=== PATIENT | male | born 1940 | race Caucasian/White ===

== ENCOUNTER 2023-03-31 23:20 | Inpatient (IN) | payer OTHER, MEDICARE ==
[2023-03-31] MEDS ORDERED: Calcium Carbonate 500 MG ChewTAB PO PRN (23:43)
[2023-03-31] MEDS ORDERED: Dextrose 50% Abboject 50 ML SYRINGE SLOW IVP PRN (23:48)
[2023-03-31] MEDS ORDERED: HumaLOG 300 UNITS/3 ML VIAL SC PRN (23:48)
[2023-03-31] MEDS ORDERED: Glucagon 1 MG/ML KIT IM PRN (23:48)
[2023-03-31] MEDS ORDERED: Dextrose 5% in Water 1,000 ML IV PRN (23:48)
[2023-03-31] MEDS ORDERED: Electrolyte Replacement Protocol 1 EACH FS SCH (23:49)
[2023-03-31 23:57] VITALS: BMI 37.5
[2023-03-31] MEDS ORDERED: Piperacillin/Tazobactam 3.375 GM in Sodium Chloride 0.9% 100 ML IVPB SCH (23:59)
[2023-03-31] MEDS ORDERED: Lactated Ringer's 500 ML IV SCH (23:59)
[2023-04-01 00:38] LABS: #Eosinphils 0.1 thou/uL (0.0-0.7); %Eosinophils 0.7 % (0.0-10.0); Mean Corpuscular Volume 102.4 fl (78.0-98.0); RBC Distribution Width 13.6 % (11.5-14.5)
[2023-04-01 00:39] LABS: #Monocytes 1.6 thou/uL (0.11-0.59); #Neutrophils 11.2 thou/uL (1.40-6.50); %Basophils 0.2 % (0.0-1.0); %Lymphocytes 3.4 % (21.0-51.0); %Monocytes 11.8 % (0.0-10.0); %Neutrophils 83.5 % (42.0-75.0); Hematocrit 30.3 % (42.0-52.0); Hemoglobin 9.1 g/dL (14.0-18.0); Mean Corpuscular Hemoglobin 30.7 pg (27.0-31.0); Platelet Count 128 10x3/uL (130-400); Red Blood Cell (RBC) Count 2.96 mill/uL (4.70-6.10); White Blood Cell (WBC) Count 13.4 10x3/uL (4.8-10.8)
[2023-04-01 01:00] LABS: ALT (SGPT) 10 U/L (8-55); AST (SGOT) 12 U/L (5-34); Albumin 2.8 g/dL (3.4-4.8); Alkaline Phosphatase 62 U/L (40-110); Anion Gap 15 mmol/L (10-20); BUN (Urea Nitrogen) 69 mg/dL (8.4-25.7); Bilirubin, Total 0.4 mg/dL (0.2-1.2); Calc. Creatinine Clearance 34 mL/min (70-130); Calcium 8.7 mg/dL (7.8-10.44); Carbon Dioxide 20 mmol/L (23-31); Chloride 106 mmol/L (98-107); Estimated GFR 24; Globulin 2.7 g/dL (2.4-3.5); Glucose 124 mg/dL (83-110); Potassium 4.5 mmol/L (3.5-5.1); Protein, Total 5.5 g/dL (5.8-8.1); Sodium 136 mmol/L (136-145)
[2023-04-01] MEDS ORDERED: GUAIFENESIN SF SOLN 200 MG/10 ML UDCUP PO PRN (01:03)
[2023-04-01] MEDS ORDERED: Ketoconazole 2% Cream 15 gm Tube TOP PRN (01:03)
[2023-04-01] MEDS ORDERED: Acetaminophen 325 MG TAB PO PRN (01:03)
[2023-04-01] MEDS ORDERED: Piperacillin/Tazobactam 3.375 GM in Sodium Chloride 0.9% 100 ML IVPB SCH (05:00)
[2023-04-01] MEDS ORDERED: Albumin 25% 25 GM/100 ML BOT IVPB SCH (07:15)
[2023-04-01] MEDS ORDERED: Carvedilol 3.125 MG TAB PO SCH ×2 (08:00)
[2023-04-01] MEDS ORDERED: Furosemide 20 MG TAB PO SCH (09:00)
[2023-04-01] MEDS ORDERED: Famotidine 20 MG TAB PO SCH ×2 (09:00)
[2023-04-01] MEDS ORDERED: Clopidogrel Bisulfate 75 MG TAB PO SCH (09:00)
[2023-04-01] MEDS ORDERED: HYDROmorphone 0.5 MG/0.5 ML SYRINGE SLOW IVP SCH (10:00)
[2023-04-01] MEDS: Senokot S 8.6-50 MG TAB PO PRN (10:06)
[2023-04-01] MEDS: Metoprolol Tartrate 25 MG TAB PO SCH ×2 (10:06→20:21)
[2023-04-01] MEDS: Ascorbic Acid 500 mg Chewable Tablet PO SCH ×2 (10:06→20:21)
[2023-04-01] MEDS: hydrALAZINE 25 MG TAB PO SCH ×3 (10:06→20:21)
[2023-04-01 11:44] LABS: #Eosinphils 0.2 thou/uL (0.0-0.7); #Monocytes 1.3 thou/uL (0.11-0.59); #Neutrophils 9.1 thou/uL (1.40-6.50); %Basophils 0.1 % (0.0-1.0); %Eosinophils 1.5 % (0.0-10.0); %Lymphocytes 3.7 % (21.0-51.0); %Monocytes 11.9 % (0.0-10.0); %Neutrophils 82.1 % (42.0-75.0); Hematocrit 27.3 % (42.0-52.0); Hemoglobin 8.7 g/dL (14.0-18.0); Mean Corpuscular HGB CONC 31.9 g/dL (32.0-36.0); Mean Corpuscular Hemoglobin 31.1 pg (27.0-31.0); Mean Platelet Volume 9.8 fL (7.4-10.4); RBC Distribution Width 13.5 % (11.5-14.5); White Blood Cell (WBC) Count 11.1 10x3/uL (4.8-10.8)
[2023-04-01 11:47] LABS: Mean Corpuscular Volume 97.5 fl (78.0-98.0); Platelet Count 122 10x3/uL (130-400)
[2023-04-01 12:03] LABS: Phosphorus 3.6 mg/dL (2.3-4.7)
[2023-04-01 12:06] LABS: Anion Gap 11 mmol/L (10-20); BUN (Urea Nitrogen) 72 mg/dL (8.4-25.7); Calc. Creatinine Clearance 33 mL/min (70-130); Calcium 8.8 mg/dL (7.8-10.44); Carbon Dioxide 25 mmol/L (23-31); Chloride 106 mmol/L (98-107); Estimated GFR 23; Glucose 136 mg/dL (83-110); Magnesium 2.2 mg/dL (1.6-2.6); Potassium 4.5 mmol/L (3.5-5.1); Sodium 137 mmol/L (136-145)
[2023-04-01] MEDS: Albumin 25% 25 GM/100 ML BOT IVPB SCH ×2 (14:00→20:21)
[2023-04-01] MEDS: Piperacillin/Tazobactam 3.375 GM in Sodium Chloride 0.9% 100 ML IVPB SCH ×2 (14:00→20:26)
[2023-04-01] MEDS: Terazosin HCl 1 MG CAP PO SCH (20:21)
[2023-04-01] MEDS: Simvastatin 10 MG TAB PO SCH (20:21)
[2023-04-01] MEDS: Acetaminophen 325 MG TAB PO PRN (20:22)
[2023-04-02 04:54] LABS: #Eosinphils 0.2 thou/uL (0.0-0.7); #Neutrophils 4.3 thou/uL (1.40-6.50); %Basophils 0.2 % (0.0-1.0); %Lymphocytes 6.7 % (21.0-51.0); %Neutrophils 72.4 % (42.0-75.0); Hematocrit 24.8 % (42.0-52.0); Hemoglobin 7.9 g/dL (14.0-18.0); Mean Corpuscular HGB CONC 31.9 g/dL (32.0-36.0); Mean Corpuscular Hemoglobin 30.7 pg (27.0-31.0); Mean Corpuscular Volume 96.5 fl (78.0-98.0); Mean Platelet Volume 9.8 fL (7.4-10.4); RBC Distribution Width 13.3 % (11.5-14.5); Red Blood Cell (RBC) Count 2.57 mill/uL (4.70-6.10)
[2023-04-02 05:03] LABS: Platelet Count 103 10x3/uL (130-400)
[2023-04-02 05:21] LABS: Albumin 3.3 g/dL (3.4-4.8); Anion Gap 12 mmol/L (10-20); BUN (Urea Nitrogen) 74 mg/dL (8.4-25.7); BUN/Creatinine Ratio 28.46; Calc. Creatinine Clearance 34 mL/min (70-130); Carbon Dioxide 23 mmol/L (23-31); Chloride 106 mmol/L (98-107); Estimated GFR 24; Glucose 133 mg/dL (83-110); Iron 8 ug/dL (65-175); Iron Binding Capacity, Total 136 mcg/dL (261-462); Phosphorus 3.6 mg/dL (2.3-4.7); Potassium 4.3 mmol/L (3.5-5.1); Sodium 137 mmol/L (136-145)
[2023-04-02] MEDS: Piperacillin/Tazobactam 3.375 GM in Sodium Chloride 0.9% 100 ML IVPB SCH ×3 (06:05→21:37)
[2023-04-02] MEDS: Metoprolol Tartrate 25 MG TAB PO SCH ×2 (07:55→20:32)
[2023-04-02] MEDS: Ascorbic Acid 500 mg Chewable Tablet PO SCH ×2 (07:55→20:30)
[2023-04-02] MEDS: hydrALAZINE 25 MG TAB PO SCH ×3 (07:55→20:32)
[2023-04-02] MEDS: Famotidine 20 MG TAB PO SCH (07:56)
[2023-04-02] MEDS: Lidocaine 4% Patch TD SCH (09:53)
[2023-04-02] MEDS: Senokot S 8.6-50 MG TAB PO PRN (09:53)
[2023-04-02] MEDS: HYDROcodone/Acetaminophen 5/325 mg Tablet PO PRN ×3 (09:53→20:36)
[2023-04-02] MEDS: Iron, Sodium Ferric Gluconate 250 MG in Sodium Chloride 0.9% 250 ML 250 ML IVPB SCH (10:20)
[2023-04-02] MEDS: Ipratropium/Albuterol 3 ML NEB NEB PRN (15:13)
[2023-04-02] MEDS: Albumin 25% 25 GM/100 ML BOT IVPB SCH ×2 (15:15→21:37)
[2023-04-02 16:27] LABS: Bacteria/HPF 2+ HPF (None Seen); Bilirubin Negative (Negative); Blood, Urine Trace (Negative); Clarity Turbid (Clear); Glucose, Urine (Dipstick) Normal (Negative); Ketone, Urine Negative (Negative); Leukocyte 500 Leu/uL (Negative); Nitrite Negative (Negative); Protein, Urine (Dipstick) 30 mg/dL (Neg-Trace); Renal Epithelial 0-3 HPF (None Seen); Specific Gravity, Urine 1.017 (1.002-1.036); Squamous Epithelial 0-3 HPF (0-3); Urobilinogen Normal mg/dL (Less than 2); WBC/HPF Greater than 50 HPF (0-3); pH, Urine 5.5 (5.0-9.0)
[2023-04-02] MEDS ORDERED: Milk Of Magnesia 30 ML UDCUP PO SCH (17:45)
[2023-04-02] MEDS: Terazosin HCl 1 MG CAP PO SCH (20:32)
[2023-04-02] MEDS: Simvastatin 10 MG TAB PO SCH (20:32)
[2023-04-02 20:33] LABS: Creatinine, Urine 71.43 mg/dL (63-166)
[2023-04-02] MEDS: Transdermal Patch Removal TOP SCH (20:33)
[2023-04-03] MEDS: HYDROcodone/Acetaminophen 5/325 mg Tablet PO PRN (04:24)
[2023-04-03] MEDS: Ipratropium/Albuterol 3 ML NEB NEB PRN (05:32)
[2023-04-03] MEDS: Piperacillin/Tazobactam 3.375 GM in Sodium Chloride 0.9% 100 ML IVPB SCH ×3 (05:34→22:04)
[2023-04-03] MEDS: Senokot S 8.6-50 MG TAB PO PRN ×2 (05:51→20:32)
[2023-04-03] MEDS ORDERED: Bisacodyl 10 MG SUPP PR PRN (05:59)
[2023-04-03] MEDS: Ondansetron ODT 4 MG TAB PO PRN (06:09)
[2023-04-03 07:12] LABS: Albumin 3.7 g/dL (3.4-4.8); Anion Gap 13 mmol/L (10-20); BUN (Urea Nitrogen) 65 mg/dL (8.4-25.7); BUN/Creatinine Ratio 30.81; Calc. Creatinine Clearance 42 mL/min (70-130); Calcium 9.4 mg/dL (7.8-10.44); Carbon Dioxide 24 mmol/L (23-31); Chloride 105 mmol/L (98-107); Estimated GFR 30; Glucose 155 mg/dL (83-110); Phosphorus 2.9 mg/dL (2.3-4.7); Potassium 4.2 mmol/L (3.5-5.1); Sodium 138 mmol/L (136-145)
[2023-04-03] MEDS: hydrALAZINE 25 MG TAB PO SCH ×3 (09:28→20:30)
[2023-04-03] MEDS: Isosorbide Dinitrate 5 MG TAB PO SCH ×3 (09:29→20:31)
[2023-04-03] MEDS: Ascorbic Acid 500 mg Chewable Tablet PO SCH ×2 (09:29→20:30)
[2023-04-03] MEDS: Lidocaine 4% Patch TD SCH (09:30)
[2023-04-03] MEDS: Famotidine 20 MG TAB PO SCH (09:30)
[2023-04-03] MEDS: Metoprolol Tartrate 25 MG TAB PO SCH ×2 (09:30→20:32)
[2023-04-03] MEDS: Iron, Sodium Ferric Gluconate 250 MG in Sodium Chloride 0.9% 250 ML 250 ML IVPB SCH (11:13)
[2023-04-03] MEDS: Epoetin (ESRD) 10,000 UNITS/ML VIAL SC SCH (11:45)
[2023-04-03] MEDS: HumaLOG 300 UNITS/3 ML VIAL SC PRN (11:48)
[2023-04-03] MEDS: HYDROcodone/Acetaminophen 10/325 mg Tablet PO PRN (14:24)
[2023-04-03] MEDS: Terazosin HCl 1 MG CAP PO SCH (20:31)
[2023-04-03] MEDS: Simvastatin 10 MG TAB PO SCH (20:31)
[2023-04-03] MEDS: Transdermal Patch Removal TOP SCH (20:32)
[2023-04-04 04:28] LABS: Albumin 3.6 g/dL (3.4-4.8); Anion Gap 15 mmol/L (10-20); BUN (Urea Nitrogen) 61 mg/dL (8.4-25.7); Calc. Creatinine Clearance 43 mL/min (70-130); Carbon Dioxide 26 mmol/L (23-31); Chloride 106 mmol/L (98-107); Estimated GFR 32; Glucose 132 mg/dL (83-110); Phosphorus 3.1 mg/dL (2.3-4.7); Potassium 4.7 mmol/L (3.5-5.1); Sodium 142 mmol/L (136-145)
[2023-04-04] MEDS: Piperacillin/Tazobactam 3.375 GM in Sodium Chloride 0.9% 100 ML IVPB SCH (05:13)
[2023-04-04 09:08] LABS: #Eosinphils 0.1 thou/uL (0.0-0.7); #Monocytes 1.3 thou/uL (0.11-0.59); #Neutrophils 7.2 thou/uL (1.40-6.50); %Basophils 0.1 % (0.0-1.0); %Eosinophils 1.4 % (0.0-10.0); %Lymphocytes 4.1 % (21.0-51.0); %Monocytes 14.5 % (0.0-10.0); %Neutrophils 79.2 % (42.0-75.0); Hematocrit 29.8 % (42.0-52.0); Hemoglobin 9.5 g/dL (14.0-18.0); Mean Corpuscular HGB CONC 31.9 g/dL (32.0-36.0); Mean Corpuscular Hemoglobin 30.6 pg (27.0-31.0); Mean Corpuscular Volume 96.1 fl (78.0-98.0); Mean Platelet Volume 9.7 fL (7.4-10.4); Platelet Count 133 10x3/uL (130-400); RBC Distribution Width 13.2 % (11.5-14.5); White Blood Cell (WBC) Count 9.1 10x3/uL (4.8-10.8)
[2023-04-04] MEDS: Cefdinir 300 MG CAP PO SCH ×2 (10:54→22:57)
[2023-04-04] MEDS: Famotidine 20 MG TAB PO SCH (10:54)
[2023-04-04] MEDS: Metoprolol Tartrate 25 MG TAB PO SCH ×2 (10:54→22:58)
[2023-04-04] MEDS: hydrALAZINE 25 MG TAB PO SCH ×3 (10:54→22:57)
[2023-04-04] MEDS: Ascorbic Acid 500 mg Chewable Tablet PO SCH ×2 (10:54→22:57)
[2023-04-04] MEDS: Isosorbide Dinitrate 5 MG TAB PO SCH ×3 (10:55→22:58)
[2023-04-04] MEDS: Lidocaine 4% Patch TD SCH (10:55)
[2023-04-04] MEDS: HYDROcodone/Acetaminophen 10/325 mg Tablet PO PRN ×2 (10:59→15:46)
[2023-04-04] MEDS: Albumin 25% 25 GM/100 ML BOT IVPB SCH ×2 (14:06)
[2023-04-04] MEDS: Iron, Sodium Ferric Gluconate 250 MG in Sodium Chloride 0.9% 250 ML 250 ML IVPB SCH (14:06)
[2023-04-04] MEDS: Ipratropium/Albuterol 3 ML NEB NEB PRN (16:41)
[2023-04-04] MEDS ORDERED: Simethicone Chewable 80 MG TAB PO SCH (17:00)
[2023-04-04] MEDS ORDERED: Metoclopramide HCl 10 MG/2 ML VIAL IVP PRN (21:03)
[2023-04-04 21:53] LABS: Hematocrit 29.3 % (42.0-52.0); Hemoglobin 9.3 g/dL (14.0-18.0); Manual Diff?? YES; Mean Corpuscular HGB CONC 31.7 g/dL (32.0-36.0); Mean Corpuscular Hemoglobin 30.8 pg (27.0-31.0); Mean Platelet Volume 9.4 fL (7.4-10.4); Platelet Count 134 10x3/uL (130-400); RBC Distribution Width 13.2 % (11.5-14.5); Red Blood Cell (RBC) Count 3.02 mill/uL (4.70-6.10); White Blood Cell (WBC) Count 6.8 10x3/uL (4.8-10.8)
[2023-04-04 21:54] LABS: Delete Auto Diff?? YES
[2023-04-04 22:20] LABS: Band 5 % (5-11); CellaVision Operator ID lab.abc; Eosinophils 2 % (0-10); Lymphocytes 3 % (21-51); Monocytes 9 % (0-10); Neutrophil 81 % (42-75); Platelet Adequacy Comment Platelets Normal; RBC Morphology Within Normal Limits; Total Cell Count 101
[2023-04-04] MEDS: Simvastatin 10 MG TAB PO SCH (22:58)
[2023-04-04] MEDS: Tamsulosin HCl 0.4 MG CAP PO SCH (22:58)
[2023-04-04] MEDS: Transdermal Patch Removal TOP SCH (22:58)
[2023-04-04] MEDS: Terazosin HCl 1 MG CAP PO SCH (22:58)
[2023-04-05 07:29] LABS: Hematocrit 27.6 % (42.0-52.0); Hemoglobin 8.6 g/dL (14.0-18.0); Mean Corpuscular HGB CONC 31.2 g/dL (32.0-36.0); Mean Corpuscular Hemoglobin 30.5 pg (27.0-31.0); Mean Corpuscular Volume 97.9 fl (78.0-98.0); Mean Platelet Volume 9.7 fL (7.4-10.4); Platelet Count 145 10x3/uL (130-400); RBC Distribution Width 13.2 % (11.5-14.5); Red Blood Cell (RBC) Count 2.82 mill/uL (4.70-6.10); White Blood Cell (WBC) Count 4.9 10x3/uL (4.8-10.8)
[2023-04-05 07:50] LABS: Delete Auto Diff?? YES; Manual Diff?? YES
[2023-04-05 07:58] LABS: ALT (SGPT) 17 U/L (8-55); AST (SGOT) 14 U/L (5-34); Albumin 3.5 g/dL (3.4-4.8); Alkaline Phosphatase 57 U/L (40-110); Anion Gap 12 mmol/L (10-20); BUN (Urea Nitrogen) 53 mg/dL (8.4-25.7); Bilirubin, Total 0.3 mg/dL (0.2-1.2); Calc. Creatinine Clearance 60 mL/min (70-130); Calcium 10.1 mg/dL (7.8-10.44); Carbon Dioxide 26 mmol/L (23-31); Chloride 111 mmol/L (98-107); Estimated GFR 47; Globulin 2.5 g/dL (2.4-3.5); Glucose 132 mg/dL (83-110); Potassium 4.6 mmol/L (3.5-5.1); Sodium 144 mmol/L (136-145)
[2023-04-05] MEDS ORDERED: Sodium Chloride 0.9% 1,000 ML IV SCH (08:00)
[2023-04-05 08:19] LABS: Band 40 % (5-11); CellaVision Operator ID LAB.GE; Eosinophils 2 % (0-10); Large Platelets 2.9 % (0-5); Lymphocytes 2 % (21-51); Metamyelocyte 1 % (0-0); Monocytes 11 % (0-10); Neutrophil 40 % (42-75); Platelet Adequacy Comment Platelets Normal; Polychromasia SLIGHT = 2-3 cells HPF (0-2); Reactive Lymphocytes 4 % (0-10); Total Cell Count 103
[2023-04-05] MEDS: Isosorbide Dinitrate 5 MG TAB PO SCH ×3 (08:52→20:39)
[2023-04-05] MEDS: Iron, Sodium Ferric Gluconate 250 MG in Sodium Chloride 0.9% 250 ML 250 ML IVPB SCH (08:52)
[2023-04-05] MEDS: Cefdinir 300 MG CAP PO SCH ×2 (08:53→20:40)
[2023-04-05] MEDS: Famotidine 20 MG TAB PO SCH (08:53)
[2023-04-05] MEDS: Lidocaine 4% Patch TD SCH (08:53)
[2023-04-05] MEDS: Ascorbic Acid 500 mg Chewable Tablet PO SCH ×2 (08:53→20:40)
[2023-04-05] MEDS: hydrALAZINE 25 MG TAB PO SCH ×3 (08:53→20:39)
[2023-04-05] MEDS: Metoprolol Tartrate 25 MG TAB PO SCH ×2 (08:53→20:40)
[2023-04-05] MEDS: HYDROcodone/Acetaminophen 10/325 mg Tablet PO PRN ×2 (09:02→18:04)
[2023-04-05] MEDS ORDERED: MD-Gastroview 120 ML BOT ONE (10:56)
[2023-04-05] MEDS ORDERED: Lactated Ringer's 1,000 ML IV SCH (19:00)
[2023-04-05] MEDS: Tamsulosin HCl 0.4 MG CAP PO SCH (20:40)
[2023-04-05] MEDS: Simvastatin 10 MG TAB PO SCH (20:40)
[2023-04-05] MEDS: Terazosin HCl 1 MG CAP PO SCH (20:40)
[2023-04-05] MEDS: Transdermal Patch Removal TOP SCH (20:41)
[2023-04-06 04:29] LABS: Hematocrit 26.8 % (42.0-52.0); Hemoglobin 8.3 g/dL (14.0-18.0); Mean Corpuscular Hemoglobin 30.2 pg (27.0-31.0); Mean Corpuscular Volume 97.5 fl (78.0-98.0); Mean Platelet Volume 9.6 fL (7.4-10.4); Platelet Count 159 10x3/uL (130-400); RBC Distribution Width 13.3 % (11.5-14.5); Red Blood Cell (RBC) Count 2.75 mill/uL (4.70-6.10); White Blood Cell (WBC) Count 7.9 10x3/uL (4.8-10.8)
[2023-04-06 04:51] LABS: Delete Auto Diff?? YES; Manual Diff?? YES
[2023-04-06 04:53] LABS: Anion Gap 11 mmol/L (10-20); BUN (Urea Nitrogen) 42 mg/dL (8.4-25.7); Calc. Creatinine Clearance 75 mL/min (70-130); Calcium 10.1 mg/dL (7.8-10.44); Carbon Dioxide 27 mmol/L (23-31); Chloride 115 mmol/L (98-107); Estimated GFR 61; Glucose 122 mg/dL (83-110); Magnesium 2.3 mg/dL (1.6-2.6); Phosphorus 1.8 mg/dL (2.3-4.7); Sodium 149 mmol/L (136-145)
[2023-04-06 05:27] LABS: Anisocytosis SLIGHT = 6-15 cells HPF (0-5); Band 42 % (5-11); CellaVision Operator ID LAB.JMM; Eosinophils 1 % (0-10); Hypochromia MODERATE=16-30 cells HPF (0-5); Lymphocytes 7 % (21-51); Microcytosis SLIGHT = 6-15 cells HPF (0-5); Monocytes 13 % (0-10); Neutrophil 37 % (42-75); Platelet Adequacy Comment Platelets Normal; Reactive Lymphocytes 1 % (0-10); Total Cell Count 103
[2023-04-06] MEDS ORDERED: Potassium Phosphate 15 MMOL in Sodium Chloride 0.9% 250 ML 250 ML IVPB SCH (06:30)
[2023-04-06] MEDS ORDERED: Dextrose 5% in Water 500 ML IV SCH (07:15)
[2023-04-06] MEDS: HYDROcodone/Acetaminophen 10/325 mg Tablet PO PRN ×2 (09:26→19:35)
[2023-04-06] MEDS: hydrALAZINE 25 MG TAB PO SCH ×3 (09:27→20:46)
[2023-04-06] MEDS: Ascorbic Acid 500 mg Chewable Tablet PO SCH ×2 (09:27→20:46)
[2023-04-06] MEDS: Isosorbide Dinitrate 5 MG TAB PO SCH ×3 (09:28→20:45)
[2023-04-06] MEDS: Empagliflozin 10 MG TAB PO SCH (09:29)
[2023-04-06] MEDS: Metoprolol Tartrate 25 MG TAB PO SCH ×2 (09:29→20:46)
[2023-04-06] MEDS: Famotidine 20 MG TAB PO SCH (09:29)
[2023-04-06] MEDS: Cefdinir 300 MG CAP PO SCH ×2 (09:29→20:47)
[2023-04-06] MEDS: Lidocaine 4% Patch TD SCH (09:32)
[2023-04-06] MEDS: guaiFENesin ER 600 MG TAB PO SCH ×2 (09:40→20:46)
[2023-04-06] MEDS: Acetaminophen 325 MG TAB PO PRN (14:51)
[2023-04-06] MEDS: Ipratropium/Albuterol 3 ML NEB NEB PRN (14:55)
[2023-04-06] MEDS: Ondansetron ODT 4 MG TAB PO PRN (19:36)
[2023-04-06] MEDS: Terazosin HCl 1 MG CAP PO SCH (20:45)
[2023-04-06] MEDS: Tamsulosin HCl 0.4 MG CAP PO SCH (20:47)
[2023-04-06] MEDS: Transdermal Patch Removal TOP SCH (20:48)
[2023-04-06] MEDS: Simvastatin 10 MG TAB PO SCH (20:48)
[2023-04-06 21:46] LABS: Anion Gap 10 mmol/L (10-20); BUN (Urea Nitrogen) 34 mg/dL (8.4-25.7); Calc. Creatinine Clearance 74 mL/min (70-130); Calcium 9.9 mg/dL (7.8-10.44); Carbon Dioxide 29 mmol/L (23-31); Chloride 111 mmol/L (98-107); Estimated GFR 60; Glucose 149 mg/dL (83-110); Potassium 3.8 mmol/L (3.5-5.1); Sodium 146 mmol/L (136-145)
[2023-04-07 05:52] LABS: Anion Gap 9 mmol/L (10-20); BUN (Urea Nitrogen) 32 mg/dL (8.4-25.7); Calc. Creatinine Clearance 75 mL/min (70-130); Carbon Dioxide 31 mmol/L (23-31); Chloride 112 mmol/L (98-107); Estimated GFR 61; Glucose 157 mg/dL (83-110); Magnesium 2.2 mg/dL (1.6-2.6); Sodium 148 mmol/L (136-145)
[2023-04-07 06:09] LABS: Phosphorus 2.3 mg/dL (2.3-4.7)
[2023-04-07] MEDS: guaiFENesin ER 600 MG TAB PO SCH ×2 (08:51→20:16)
[2023-04-07] MEDS: Cefdinir 300 MG CAP PO SCH ×2 (08:51→20:16)
[2023-04-07] MEDS: hydrALAZINE 25 MG TAB PO SCH ×3 (08:51→20:17)
[2023-04-07] MEDS: Isosorbide Dinitrate 5 MG TAB PO SCH ×3 (08:52→20:16)
[2023-04-07] MEDS: Famotidine 20 MG TAB PO SCH (08:52)
[2023-04-07] MEDS: Senokot S 8.6-50 MG TAB PO PRN (08:52)
[2023-04-07] MEDS: Metoprolol Tartrate 25 MG TAB PO SCH ×2 (08:52→20:16)
[2023-04-07] MEDS: Empagliflozin 10 MG TAB PO SCH (08:53)
[2023-04-07] MEDS: Ascorbic Acid 500 mg Chewable Tablet PO SCH ×2 (08:53→20:16)
[2023-04-07] MEDS ORDERED: D5 1/4 NS 1,000 ML IV SCH (09:45)
[2023-04-07] MEDS: Lidocaine 4% Patch TD SCH (09:58)
[2023-04-07] MEDS: HYDROcodone/Acetaminophen 10/325 mg Tablet PO PRN (10:26)
[2023-04-07] MEDS ORDERED: Pantoprazole 40 MG VIAL IVP SCH (12:04)
[2023-04-07] MEDS: Ipratropium/Albuterol 3 ML NEB NEB PRN (14:30)
[2023-04-07] MEDS ORDERED: Dextrose 5% in Water 1,000 ML IV SCH (17:30)
[2023-04-07] MEDS: D5 1/4 NS 1,000 ML IV SCH (18:44)
[2023-04-07] MEDS: Simvastatin 10 MG TAB PO SCH (20:16)
[2023-04-07] MEDS: Terazosin HCl 1 MG CAP PO SCH (20:16)
[2023-04-07] MEDS: Pantoprazole 40 MG VIAL IVP SCH (20:16)
[2023-04-07] MEDS: Tamsulosin HCl 0.4 MG CAP PO SCH (20:17)
[2023-04-07] MEDS: Transdermal Patch Removal TOP SCH (20:18)
[2023-04-08] MEDS: D5 1/4 NS 1,000 ML IV SCH ×3 (03:33→21:45)
[2023-04-08 04:45] LABS: Hematocrit 28.7 % (42.0-52.0); Hemoglobin 8.9 g/dL (14.0-18.0); Mean Corpuscular Hemoglobin 30.8 pg (27.0-31.0); Mean Corpuscular Volume 99.3 fl (78.0-98.0); Mean Platelet Volume 9.9 fL (7.4-10.4); Platelet Count 228 10x3/uL (130-400); RBC Distribution Width 13.5 % (11.5-14.5); Red Blood Cell (RBC) Count 2.89 mill/uL (4.70-6.10); White Blood Cell (WBC) Count 12.6 10x3/uL (4.8-10.8)
[2023-04-08 05:04] LABS: Delete Auto Diff?? YES; Manual Diff?? YES
[2023-04-08 05:14] LABS: Anion Gap 9 mmol/L (10-20); BUN (Urea Nitrogen) 28 mg/dL (8.4-25.7); Calc. Creatinine Clearance 66 mL/min (70-130); Calcium 9.8 mg/dL (7.8-10.44); Carbon Dioxide 29 mmol/L (23-31); Chloride 108 mmol/L (98-107); Estimated GFR 53; Glucose 167 mg/dL (83-110); Magnesium 2.1 mg/dL (1.6-2.6); Potassium 3.7 mmol/L (3.5-5.1); Sodium 142 mmol/L (136-145)
[2023-04-08 05:26] LABS: Band 8 % (5-11); CellaVision Operator ID LAB.CLH1; Eosinophils 4 % (0-10); Hypochromia SLIGHT = 6-15 cells HPF (0-5); Lymphocytes 6 % (21-51); Macrocytosis SLIGHT = 6-15 cells HPF (0-5); Metamyelocyte 1 % (0-0); Monocytes 4 % (0-10); Neutrophil 76 % (42-75); Nucleated RBC (Manual Ct) 2 % (0); Platelet Adequacy Comment Platelets Normal; Polychromasia SLIGHT = 2-3 cells HPF (0-2); Total Cell Count 100
[2023-04-08] MEDS: Metoprolol Tartrate 25 MG TAB PO SCH ×2 (08:38→21:28)
[2023-04-08] MEDS: hydrALAZINE 25 MG TAB PO SCH ×3 (08:38→21:28)
[2023-04-08] MEDS: Cefdinir 300 MG CAP PO SCH ×2 (08:38→21:28)
[2023-04-08] MEDS: Isosorbide Dinitrate 5 MG TAB PO SCH ×3 (08:38→21:28)
[2023-04-08] MEDS: Ascorbic Acid 500 mg Chewable Tablet PO SCH ×2 (08:38→21:28)
[2023-04-08] MEDS: guaiFENesin ER 600 MG TAB PO SCH ×2 (08:39→21:28)
[2023-04-08] MEDS: Lidocaine 4% Patch TD SCH (08:39)
[2023-04-08] MEDS: Pantoprazole 40 MG VIAL IVP SCH ×2 (08:39→21:27)
[2023-04-08] MEDS: Terazosin HCl 1 MG CAP PO SCH (21:28)
[2023-04-08] MEDS: Simvastatin 10 MG TAB PO SCH (21:28)
[2023-04-08] MEDS: Acetaminophen 325 MG TAB PO PRN (21:29)
[2023-04-08] MEDS: Tamsulosin HCl 0.4 MG CAP PO SCH (21:29)
[2023-04-08] MEDS: Transdermal Patch Removal TOP SCH (21:34)
[2023-04-09] MEDS ORDERED: Furosemide 40 MG/4 ML VIAL SLOW IVP SCH (08:30)
[2023-04-09] MEDS: Cefdinir 300 MG CAP PO SCH ×2 (08:32→20:39)
[2023-04-09] MEDS: Lidocaine 4% Patch TD SCH (08:32)
[2023-04-09] MEDS: guaiFENesin ER 600 MG TAB PO SCH ×2 (08:32→20:40)
[2023-04-09] MEDS: Isosorbide Dinitrate 5 MG TAB PO SCH ×3 (08:32→20:40)
[2023-04-09] MEDS: Ascorbic Acid 500 mg Chewable Tablet PO SCH ×2 (08:32→20:53)
[2023-04-09] MEDS: Pantoprazole 40 MG VIAL IVP SCH ×2 (08:33→20:41)
[2023-04-09] MEDS: hydrALAZINE 25 MG TAB PO SCH ×3 (08:33→20:40)
[2023-04-09] MEDS: Metoprolol Tartrate 25 MG TAB PO SCH ×2 (08:33→20:40)
[2023-04-09 11:03] LABS: Anion Gap 11 mmol/L (10-20); BUN (Urea Nitrogen) 27 mg/dL (8.4-25.7); Calc. Creatinine Clearance 59 mL/min (70-130); Calcium 8.8 mg/dL (7.8-10.44); Carbon Dioxide 26 mmol/L (23-31); Chloride 107 mmol/L (98-107); Estimated GFR 44; Glucose 135 mg/dL (83-110); Magnesium 1.9 mg/dL (1.6-2.6); Phosphorus 2.4 mg/dL (2.3-4.7); Potassium 3.6 mmol/L (3.5-5.1); Sodium 140 mmol/L (136-145)
[2023-04-09] MEDS: Metoclopramide HCl 10 MG/2 ML VIAL IVP SCH ×2 (14:31→20:41)
[2023-04-09] MEDS: Ipratropium/Albuterol 3 ML NEB NEB PRN (15:57)
[2023-04-09] MEDS: Simvastatin 10 MG TAB PO SCH (20:39)
[2023-04-09] MEDS: Terazosin HCl 1 MG CAP PO SCH (20:39)
[2023-04-09] MEDS: Tamsulosin HCl 0.4 MG CAP PO SCH (20:39)
[2023-04-09] MEDS: Transdermal Patch Removal TOP SCH (20:53)
[2023-04-10] MEDS: Pantoprazole 40 MG VIAL IVP SCH ×2 (08:59→21:20)
[2023-04-10] MEDS: Metoprolol Tartrate 25 MG TAB PO SCH ×2 (08:59→21:20)
[2023-04-10] MEDS: hydrALAZINE 25 MG TAB PO SCH ×3 (08:59→21:19)
[2023-04-10] MEDS: Naloxegol 12.5 MG TAB PO SCH (08:59)
[2023-04-10] MEDS: Metoclopramide HCl 10 MG/2 ML VIAL IVP SCH ×3 (09:00→21:20)
[2023-04-10] MEDS: Isosorbide Dinitrate 5 MG TAB PO SCH ×3 (09:00→21:20)
[2023-04-10] MEDS: guaiFENesin ER 600 MG TAB PO SCH ×2 (09:00→21:19)
[2023-04-10] MEDS: Cefdinir 300 MG CAP PO SCH ×2 (09:00→21:20)
[2023-04-10] MEDS: Lidocaine 4% Patch TD SCH (09:01)
[2023-04-10] MEDS: Ascorbic Acid 500 mg Chewable Tablet PO SCH ×2 (09:02→21:19)
[2023-04-10] MEDS: Ipratropium/Albuterol 3 ML NEB NEB PRN (09:52)
[2023-04-10] MEDS: D5 1/4 NS 1,000 ML IV SCH (11:26)
[2023-04-10] MEDS: HumaLOG 300 UNITS/3 ML VIAL SC PRN (11:40)
[2023-04-10] MEDS: Epoetin (ESRD) 10,000 UNITS/ML VIAL SC SCH (11:47)
[2023-04-10] MEDS ORDERED: levETIRAcetam 500 MG TAB PO SCH (21:00)
[2023-04-10] MEDS: Terazosin HCl 1 MG CAP PO SCH (21:19)
[2023-04-10] MEDS: Tamsulosin HCl 0.4 MG CAP PO SCH (21:20)
[2023-04-10] MEDS: Simvastatin 10 MG TAB PO SCH (21:20)
[2023-04-10] MEDS: Transdermal Patch Removal TOP SCH (21:21)
[2023-04-11 05:09] LABS: Hematocrit 26.7 % (42.0-52.0); Hemoglobin 8.5 g/dL (14.0-18.0); Mean Corpuscular HGB CONC 31.8 g/dL (32.0-36.0); Mean Corpuscular Hemoglobin 30.8 pg (27.0-31.0); Mean Corpuscular Volume 96.7 fl (78.0-98.0); Mean Platelet Volume 9.8 fL (7.4-10.4); Platelet Count 184 10x3/uL (130-400); RBC Distribution Width 13.4 % (11.5-14.5); Red Blood Cell (RBC) Count 2.76 mill/uL (4.70-6.10); White Blood Cell (WBC) Count 10.5 10x3/uL (4.8-10.8)
[2023-04-11 05:13] LABS: Delete Auto Diff?? YES; Manual Diff?? YES
[2023-04-11 05:35] LABS: Albumin 2.8 g/dL (3.4-4.8); Anion Gap 12 mmol/L (10-20); BUN (Urea Nitrogen) 28 mg/dL (8.4-25.7); BUN/Creatinine Ratio 17.61; Band 9 % (5-11); Calc. Creatinine Clearance 57 mL/min (70-130); Carbon Dioxide 23 mmol/L (23-31); CellaVision Operator ID LAB.CLH1; Chloride 109 mmol/L (98-107); Eosinophils 1 % (0-10); Estimated GFR 43; Glucose 138 mg/dL (83-110); Hypochromia SLIGHT = 6-15 cells HPF (0-5); Lymphocytes 9 % (21-51); Macrocytosis SLIGHT = 6-15 cells HPF (0-5); Magnesium 1.9 mg/dL (1.6-2.6); Monocytes 7 % (0-10); Myelocyte 3 % (0-0); Neutrophil 69 % (42-75); Phosphorus 2.8 mg/dL (2.3-4.7); Platelet Adequacy Comment Platelets Normal; Polychromasia SLIGHT = 2-3 cells HPF (0-2); Potassium 3.5 mmol/L (3.5-5.1); Promyelocytes 1 % (0-0); Reactive Lymphocytes 1 % (0-10); Sodium 140 mmol/L (136-145); Total Cell Count 101
[2023-04-11] MEDS ORDERED: Isosorbide Dinitrate 5 MG TAB PO SCH (07:21)
[2023-04-11] MEDS: Ascorbic Acid 500 mg Chewable Tablet PO SCH ×2 (08:22→22:31)
[2023-04-11] MEDS: Cefdinir 300 MG CAP PO SCH ×2 (08:22→22:30)
[2023-04-11] MEDS: Naloxegol 12.5 MG TAB PO SCH (08:22)
[2023-04-11] MEDS: Metoprolol Tartrate 25 MG TAB PO SCH ×2 (08:23→22:30)
[2023-04-11] MEDS: guaiFENesin ER 600 MG TAB PO SCH ×2 (08:23→22:30)
[2023-04-11] MEDS: hydrALAZINE 25 MG TAB PO SCH ×3 (08:23→22:29)
[2023-04-11] MEDS: Isosorbide Dinitrate 20 MG TAB PO SCH ×3 (08:23→22:30)
[2023-04-11] MEDS ORDERED: levETIRAcetam 500 MG TAB PO SCH (09:00)
[2023-04-11] MEDS: Pantoprazole 40 MG VIAL IVP SCH ×2 (09:45→22:30)
[2023-04-11] MEDS: Lidocaine 4% Patch TD SCH (09:45)
[2023-04-11] MEDS: Metoclopramide HCl 10 MG/2 ML VIAL IVP SCH ×3 (09:45→22:31)
[2023-04-11] MEDS: D5 LR w/20 mEq KCL 1,000 ML IV SCH (11:10)
[2023-04-11] MEDS: Albumin 25% 25 GM/100 ML BOT IVPB SCH ×2 (15:35→22:29)
[2023-04-11] MEDS ORDERED: Furosemide 40 MG/4 ML VIAL SLOW IVP SCH (17:15)
[2023-04-11] MEDS: Ipratropium/Albuterol 3 ML NEB NEB PRN (19:54)
[2023-04-11] MEDS: Terazosin HCl 1 MG CAP PO SCH (22:30)
[2023-04-11] MEDS: Tamsulosin HCl 0.4 MG CAP PO SCH (22:30)
[2023-04-11] MEDS: Transdermal Patch Removal TOP SCH (22:30)
[2023-04-11] MEDS: Simvastatin 10 MG TAB PO SCH (22:30)
[2023-04-11] MEDS ORDERED: Mometasone 200 MCG/Formoterol 5 MCG 120 PUFF INHALER INH SCH (22:45)
[2023-04-12] MEDS: Albumin 25% 25 GM/100 ML BOT IVPB SCH ×2 (06:01→14:30)
[2023-04-12] MEDS: Furosemide 40 MG/4 ML VIAL SLOW IVP SCH ×2 (06:01→14:27)
[2023-04-12 07:34] LABS: Hematocrit 25.5 % (42.0-52.0); Hemoglobin 7.9 g/dL (14.0-18.0); Mean Corpuscular Hemoglobin 30.4 pg (27.0-31.0); Mean Corpuscular Volume 98.1 fl (78.0-98.0); Mean Platelet Volume 10.2 fL (7.4-10.4); Platelet Count 170 10x3/uL (130-400); RBC Distribution Width 13.6 % (11.5-14.5); White Blood Cell (WBC) Count 8.8 10x3/uL (4.8-10.8)
[2023-04-12 07:49] LABS: Manual Diff?? YES
[2023-04-12] MEDS: Mometasone 200 MCG/Formoterol 5 MCG 120 PUFF INHALER INH SCH ×2 (07:52→19:26)
[2023-04-12 07:54] LABS: Albumin 3.6 g/dL (3.4-4.8); Anion Gap 15 mmol/L (10-20); BUN (Urea Nitrogen) 24 mg/dL (8.4-25.7); Calc. Creatinine Clearance 61 mL/min (70-130); Calcium 9.4 mg/dL (7.8-10.44); Carbon Dioxide 23 mmol/L (23-31); Chloride 107 mmol/L (98-107); Estimated GFR 46; Glucose 110 mg/dL (83-110); Phosphorus 2.3 mg/dL (2.3-4.7); Potassium 3.3 mmol/L (3.5-5.1); Sodium 142 mmol/L (136-145)
[2023-04-12] MEDS ORDERED: Potassium Chloride 20 MEQ TAB PO SCH (08:15)
[2023-04-12] MEDS: hydrALAZINE 25 MG TAB PO SCH ×3 (09:08→21:23)
[2023-04-12] MEDS: Isosorbide Dinitrate 20 MG TAB PO SCH ×3 (09:08→21:23)
[2023-04-12] MEDS: guaiFENesin ER 600 MG TAB PO SCH ×2 (09:08→21:23)
[2023-04-12] MEDS: Pantoprazole 40 MG VIAL IVP SCH ×2 (09:09→21:23)
[2023-04-12] MEDS: Cefdinir 300 MG CAP PO SCH ×2 (09:09→21:22)
[2023-04-12] MEDS: Metoprolol Tartrate 25 MG TAB PO SCH ×2 (09:09→21:23)
[2023-04-12] MEDS: Ascorbic Acid 500 mg Chewable Tablet PO SCH ×2 (09:09→21:22)
[2023-04-12] MEDS: D5 LR w/20 mEq KCL 1,000 ML IV SCH (09:10)
[2023-04-12] MEDS: Naloxegol 12.5 MG TAB PO SCH (09:10)
[2023-04-12] MEDS: Metoclopramide HCl 10 MG/2 ML VIAL IVP SCH (09:10)
[2023-04-12] MEDS: Lidocaine 4% Patch TD SCH (09:17)
[2023-04-12 09:25] LABS: CellaVision Operator ID LAB.GE; Eosinophils 3 % (0-10); Neutrophil 75 % (42-75); Platelet Adequacy Comment Platelets Normal; Polychromasia SLIGHT = 2-3 cells HPF (0-2); Total Cell Count 101
[2023-04-12 10:52] LABS: Band 8 % (5-11); Lymphocytes 4 % (21-51); Metamyelocyte 4 % (0-0); Monocytes 5 % (0-10); Myelocyte 1 % (0-0)
[2023-04-12] MEDS ORDERED: D5 LR w/20 mEq KCL 1,000 ML IV SCH (12:51)
[2023-04-12] MEDS: Simvastatin 10 MG TAB PO SCH (21:22)
[2023-04-12] MEDS: Terazosin HCl 1 MG CAP PO SCH (21:22)
[2023-04-12] MEDS: Transdermal Patch Removal TOP SCH (21:23)
[2023-04-12] MEDS: Tamsulosin HCl 0.4 MG CAP PO SCH (21:23)
[2023-04-13] MEDS: Furosemide 40 MG/4 ML VIAL SLOW IVP SCH ×2 (05:24→14:38)
[2023-04-13 06:59] LABS: Albumin 3.3 g/dL (3.4-4.8); Anion Gap 12 mmol/L (10-20); BUN (Urea Nitrogen) 20 mg/dL (8.4-25.7); BUN/Creatinine Ratio 15.75; Calc. Creatinine Clearance 72 mL/min (70-130); Calcium 9.2 mg/dL (7.8-10.44); Carbon Dioxide 25 mmol/L (23-31); Chloride 108 mmol/L (98-107); Estimated GFR 56; Glucose 143 mg/dL (83-110); Phosphorus 1.4 mg/dL (2.3-4.7); Potassium 3.6 mmol/L (3.5-5.1); Sodium 141 mmol/L (136-145)
[2023-04-13] MEDS ORDERED: Potassium Phosphate 30 MMOL in Sodium Chloride 0.9% 250 ML 250 ML IVPB SCH (07:30)
[2023-04-13] MEDS: Mometasone 200 MCG/Formoterol 5 MCG 120 PUFF INHALER INH SCH ×2 (07:57→19:04)
[2023-04-13] MEDS: Empagliflozin 10 MG TAB PO SCH (09:05)
[2023-04-13] MEDS: Metoprolol Tartrate 25 MG TAB PO SCH (09:05)
[2023-04-13] MEDS: Ascorbic Acid 500 mg Chewable Tablet PO SCH ×2 (09:05→20:22)
[2023-04-13] MEDS: hydrALAZINE 25 MG TAB PO SCH ×3 (09:05→20:22)
[2023-04-13] MEDS: Isosorbide Dinitrate 20 MG TAB PO SCH ×3 (09:05→20:22)
[2023-04-13] MEDS: guaiFENesin ER 600 MG TAB PO SCH ×2 (09:05→20:22)
[2023-04-13] MEDS: Pantoprazole 40 MG VIAL IVP SCH ×2 (09:07→20:22)
[2023-04-13] MEDS: Lidocaine 4% Patch TD SCH (09:07)
[2023-04-13] MEDS: Metoprolol Tartrate 50 MG TAB PO SCH (20:22)
[2023-04-13] MEDS: Tamsulosin HCl 0.4 MG CAP PO SCH (20:22)
[2023-04-13] MEDS: Simvastatin 10 MG TAB PO SCH (20:22)
[2023-04-13] MEDS: Transdermal Patch Removal TOP SCH (20:22)
[2023-04-13] MEDS: Terazosin HCl 1 MG CAP PO SCH (20:22)
[2023-04-14 05:03] LABS: #Eosinphils 0.2 thou/uL (0.0-0.7); #Monocytes 0.8 thou/uL (0.11-0.59); #Neutrophils 6.4 thou/uL (1.40-6.50); %Basophils 0.5 % (0.0-1.0); %Eosinophils 2.6 % (0.0-10.0); %Lymphocytes 11.5 % (21.0-51.0); Hematocrit 26.2 % (42.0-52.0); Hemoglobin 8.3 g/dL (14.0-18.0); Mean Corpuscular HGB CONC 31.7 g/dL (32.0-36.0); Mean Corpuscular Hemoglobin 30.7 pg (27.0-31.0); Mean Platelet Volume 10.8 fL (7.4-10.4); Platelet Count 177 10x3/uL (130-400); RBC Distribution Width 14.1 % (11.5-14.5); White Blood Cell (WBC) Count 8.8 10x3/uL (4.8-10.8)
[2023-04-14] MEDS: Furosemide 40 MG/4 ML VIAL SLOW IVP SCH ×2 (05:07→16:59)
[2023-04-14 05:30] LABS: Anion Gap 13 mmol/L (10-20); BUN (Urea Nitrogen) 16 mg/dL (8.4-25.7); Calc. Creatinine Clearance 62 mL/min (70-130); Calcium 9.2 mg/dL (7.8-10.44); Carbon Dioxide 28 mmol/L (23-31); Chloride 105 mmol/L (98-107); Estimated GFR 47; Glucose 112 mg/dL (83-110); Magnesium 1.5 mg/dL (1.6-2.6); Phosphorus 2.9 mg/dL (2.3-4.7); Potassium 3.7 mmol/L (3.5-5.1); Sodium 142 mmol/L (136-145)
[2023-04-14] MEDS: Mometasone 200 MCG/Formoterol 5 MCG 120 PUFF INHALER INH SCH (07:36)
[2023-04-14] MEDS: Magnesium Sulfate In Water 4 GM in Premix Bag 1 BAG IVPB SCH ×2 (07:50→09:57)
[2023-04-14] MEDS ORDERED: Magnesium Sulfate In Water 4 GM in Premix Bag 1 BAG IVPB SCH (08:00)
[2023-04-14] MEDS: Metoprolol Tartrate 50 MG TAB PO SCH (09:37)
[2023-04-14] MEDS: Empagliflozin 10 MG TAB PO SCH (09:37)
[2023-04-14] MEDS: Isosorbide Dinitrate 20 MG TAB PO SCH ×2 (09:37→16:59)
[2023-04-14] MEDS: hydrALAZINE 25 MG TAB PO SCH ×2 (09:37→16:58)
[2023-04-14] MEDS: guaiFENesin ER 600 MG TAB PO SCH (09:37)
[2023-04-14] MEDS: Ascorbic Acid 500 mg Chewable Tablet PO SCH (09:37)
[2023-04-14] MEDS: Pantoprazole 40 MG VIAL IVP SCH (09:37)
[2023-04-14] MEDS: Lidocaine 4% Patch TD SCH (09:40)
[2023-04-14 15:43] VITALS: BP 132/63; TEMP 98.3
== END 2023-04-14 17:46 | disposition home health service (06) | DRG 871 ==
LOC: 2NO 23:20
PROVIDERS: ADMIT Student in an Organized Health Care Education/Training Program; ATTEND Emergency Medicine
PROC: 3E03329 Introduction of Other Anti-infective into Peripheral Vein, Percutaneous Approach (ICD-10-PCS; 2023-03-31)
PROC: 30233J1 Transfusion of Nonautologous Serum Albumin into Peripheral Vein, Percutaneous Approach (ICD-10-PCS; principal; 2023-04-01)
PROC: 5A09357 Assistance with Respiratory Ventilation, Less than 24 Consecutive Hours, Continuous Positive Airway Pressure (ICD-10-PCS; 2023-04-01)
PROC: 0T9B70Z Drainage of Bladder with Drainage Device, Via Natural or Artificial Opening (ICD-10-PCS; 2023-04-04)
PROC: 0D9670Z Drainage of Stomach with Drainage Device, Via Natural or Artificial Opening (ICD-10-PCS; 2023-04-04)
DX: A41.51 Sepsis due to Escherichia coli [E. coli] (principal); I50.33 Acute on chronic diastolic (congestive) heart failure; N17.9 Acute kidney failure, unspecified; N39.0 Urinary tract infection, site not specified; I13.0 Hypertensive heart and chronic kidney disease with heart failure and stage 1 through stage 4 chronic kidney disease, or unspecified chronic kidney disease; J96.11 Chronic respiratory failure with hypoxia; K57.92 Diverticulitis of intestine, part unspecified, without perforation or abscess without bleeding; E87.0 Hyperosmolality and hypernatremia; K56.7 Ileus, unspecified; I47.1 Supraventricular tachycardia; R65.20 Severe sepsis without septic shock; E88.09 Other disorders of plasma-protein metabolism, not elsewhere classified; N18.30 Chronic kidney disease, stage 3 unspecified; E11.22 Type 2 diabetes mellitus with diabetic chronic kidney disease; G47.33 Obstructive sleep apnea (adult) (pediatric); J44.9 Chronic obstructive pulmonary disease, unspecified; N20.0 Calculus of kidney; E66.01 Morbid (severe) obesity due to excess calories; I25.10 Atherosclerotic heart disease of native coronary artery without angina pectoris; E11.51 Type 2 diabetes mellitus with diabetic peripheral angiopathy without gangrene; Z96.652 Presence of left artificial knee joint; R31.0 Gross hematuria; D63.1 Anemia in chronic kidney disease; R19.7 Diarrhea, unspecified; E87.6 Hypokalemia; K42.9 Umbilical hernia without obstruction or gangrene; T40.605A Adverse effect of unspecified narcotics, initial encounter; Z99.81 Dependence on supplemental oxygen; Z68.38 Body mass index [BMI] 38.0-38.9, adult; Z90.49 Acquired absence of other specified parts of digestive tract; Z98.890 Other specified postprocedural states
CPT/HCPCS: 36415; 36416; 71045; 74018; 74019; 74176; 74250; 80048; 80053; 80069; 81001; 82550; 82570; 82728; 83540; 83550; 83605; 83690; 83735; 83880; 84100; 84145; 84156; 84300; 84484; 84540; 85025; 86140; 87040; 87077; 87086; 87186; 87324; 87449; 93005; 93306; 94640; 96361; 96365; 96375; 96376; C9113; J0696; J1170; J1815; J1940; J2272; J2405; J2543; J2765; J2916; J3010; J3370; J3475; J3480; J3490; J7042; J7050; J7070; J7120; J7620; P9047; Q0162; Q4081; Q9963